=== PATIENT | male | born 1985 | race Caucasian/White ===

== ENCOUNTER 2024-12-07 12:10 | Emergency (ER) | payer OTHER ==
[~2024-12-07] VITALS: Ht 180.3 cm; Wt 99.8 kg
[2024-12-07] MEDS ORDERED: AMOCLA875 PO ×2 (13:43→13:44)
== END 2024-12-07 14:37 | disposition home or self-care (01) ==
LOC: ER 12:10
DX: S51.051A Open bite, right elbow, initial encounter (principal); S81.851A Open bite, right lower leg, initial encounter; S81.052A Open bite, left knee, initial encounter; Z23 Encounter for immunization; W54.0XXA Bitten by dog, initial encounter
CPT/HCPCS: 12001; 90471; 90715; 99283-25